=== PATIENT | female | born 1950 | race Caucasian/White ===

== ENCOUNTER → 2016-11-22 | Outpatient (CLI) | payer OTHER | LOC: CIMAGING 13:27 | PROVIDERS: ATTEND Internal Medicine | DX: N64.89 Other specified disorders of breast (principal) | CPT/HCPCS: G0204 ==

== ENCOUNTER → 2017-04-07 | Outpatient (CLI) | payer OTHER, MEDICARE | LOC: BRMIMAGING 13:59 | PROVIDERS: ATTEND Internal Medicine | DX: Z13.820 Encounter for screening for osteoporosis (principal); M81.0 Age-related osteoporosis without current pathological fracture; Z78.0 Asymptomatic menopausal state ==

== ENCOUNTER → 2017-04-10 | Outpatient (CLI) | payer OTHER, MEDICARE ==
[~2017-04-10] MED LIST: GADOBUTROL 10 ML VIAL IVP ONE
== END ==
LOC: FIMAGING 07:06
PROVIDERS: ATTEND Internal Medicine
DX: Z12.39 Encounter for other screening for malignant neoplasm of breast (principal); N63.22 Unspecified lump in the left breast, upper inner quadrant
CPT/HCPCS: 0159T; A9585; C8908

== ENCOUNTER 2017-04-17 08:01 | Outpatient (CLI) | payer OTHER, MEDICARE ==
[2017-04-17] MEDS ORDERED: GADOBUTROL 10 ML VIAL IVP ONE (08:50)
[2017-04-17] MEDS ORDERED: NA BICARBONATE 50 MEQ/50 ML VIAL ONE ×2 (08:50→08:54)
[2017-04-17] MEDS ORDERED: LIDOCAINE 1% 5 ML SDV ONE ×2 (08:53→08:54)
[2017-04-17] MEDS ORDERED: BUPIVACAINE 0.5% 30 ML SDV ONE (08:54)
[2017-04-17] MEDS ORDERED: NALOXONE HCL 0.4 MG/ML INJ ONE (09:24)
[2017-04-17] MEDS ORDERED: FLUMAZENIL 0.5 MG/5 ML MDV IVP ONE (09:24)
[2017-04-17] MEDS ORDERED: ONDANSETRON 4 MG/2 ML VIAL ONE (09:24)
[2017-04-17] MEDS ORDERED: fentaNYL 100 MCG/2 ML INJ ONE (09:25)
[2017-04-17] MEDS ORDERED: MIDAZOLAM 2 MG/2 ML VIAL ONE (09:25)
[2017-04-23 18:07] LABS: FIXED IN 10%FORM 6-72HR Yes; FIXED IN 10%FORM W/IN 1 HR Yes
== END 2017-04-17 12:18 | disposition home or self-care (01) ==
LOC: FIMAGING 08:01
PROVIDERS: ATTEND Internal Medicine
PROC: BH3 Imaging, Skin, Subcutaneous Tissue and Breast, Magnetic Resonance Imaging (MRI) (ICD-10-PCS; principal; 2017-04-17)
DX: C50.812 Malignant neoplasm of overlapping sites of left female breast (principal)
CPT/HCPCS: 19085; 88305; 88341; 88342; 88360; 88361; 99152; 99153; A9585; G0206; J2250; J3010; J2310; J2405

== ENCOUNTER → 2017-05-07 | Day surgery (SDC) | payer OTHER, MEDICARE ==
[~2017-05-07] MED LIST changes: +BUPIVACAINE 0.5% 10 ML SDV ONE; -GADOBUTROL 10 ML VIAL IVP ONE; +LIDOCAINE 1% 300 MG/30 ML SDV ONE
== END | disposition home or self-care (01) ==
LOC: FIMAGING 07:21
PROVIDERS: ATTEND Radiology Diagnostic Radiology
DX: C50.912 Malignant neoplasm of unspecified site of left female breast (principal)
CPT/HCPCS: 19281; 76098; 78195; A9520

== ENCOUNTER → 2017-07-09 | Outpatient (CLI) | payer OTHER, MEDICARE | LOC: FIMAGING 11:13 | PROVIDERS: ATTEND Physician Assistant | DX: T84.84XA Pain due to internal orthopedic prosthetic devices, implants and grafts, initial encounter (principal) | CPT/HCPCS: 78320; A9503 ==

== ENCOUNTER → 2017-12-09 | Outpatient (CLI) | payer OTHER, MEDICARE | LOC: FIMAGING 14:45 | PROVIDERS: ATTEND Surgery | DX: R10.31 Right lower quadrant pain (principal) ==

== ENCOUNTER → 2018-01-01 | Outpatient (CLI) | payer OTHER, MEDICARE | LOC: FIMAGING 12:21 | PROVIDERS: ATTEND Internal Medicine | DX: Z12.31 Encounter for screening mammogram for malignant neoplasm of breast (principal); Z85.3 Personal history of malignant neoplasm of breast ==

== ENCOUNTER 2018-07-16 21:07 | Emergency (ER) | payer OTHER, MEDICARE ==
--- NOTE | 2018-07-16 21:31 | EDPHY ---
H & P Stated Complaint: headache Source: Patient Exam Limitations: No limitations - Personal History Current Tetanus Diphtheria and Acellular Pertussis (TDAP): Yes - Medical/Surgical History Hx Asthma: No Hx Chronic Respiratory Disease: No Hx Diabetes: No Hx Cardiac Disease: No Hx Renal Disease: No Hx Cirrhosis: No Hx Alcoholism: No Hx HIV/AIDS: No Hx Splenectomy or Spleen Trauma: No Other PMH: ANXIETY - Social History Smoking Status: Never smoked Time Seen by Provider: 07/16/18 21:30 HPI/ROS: HPI: This is a 68-year-old female who presents with Chief Complaint: Headache, anxiety Location: Left eye, jehovah's witness Quality: Headache Duration: Since this morning Signs and Symptoms: no fever, + nausea, no vomiting, + photophobia, no noise sensitivity, no neck stiffness, no ear pain, no tinnitus, no nasal congestion, no sinus pressure, no weakness, no radiation, no aura, no neck stiffness, no rash Timing: Gradually worsening Severity: 12/07 Context: Patient reports that she around mid morning while she was doing housework she started to developed pressure behind her left eye that was mild and dull and aching. She then ran some errands and tonight around 7:00 p.m. The pain started to worsen and radiate into her left jehovah's witness and into the side of her left head. Patient reports that she is nauseous but has had no vomiting , fever, vision changes, aura, sore throat, neck stiffness. Patient reports that she is sensitive to light. She reports that she does not get headaches very often and that this headache type is new for her. She does not have a history of migraine headaches. She is postmenopausal. She thought that she needed to eat food which was causing her nausea so she had a large meal without relief of her symptoms. Modifying Factors: None Comment: ROS: A comprehensive 10 system review of systems is otherwise negative aside from elements mentioned in the history of present illness. MEDICAL/SURGICAL/SOCIAL HISTORY: Medical history: Anxiety, depression. Surgical history: Denies Social history: Nonsmoker. . Family history noncontributory. CONSTITUTIONAL: Nontoxic-appearing, polite and cooperative, elderly white female who appears younger than stated age, awake and alert, no obvious distress HEENT: Atraumatic and normocephalic, PERRL, EOMI. Cranial nerves 2-12 grossly intact. Nares patent; no rhinorrhea; no nasal mucosal edema. Tympanic membranes clear. Oropharynx clear, no exudate and moist pink mucosa. Airway patent. No lymphadenopathy. Neck: Supple, full range of motion, no pain with ranges of motion, No meningismus. Cardiovascular: Normal S1/S2, regular rate, regular rhythm, without murmur rub or gallop. PULMONARY/CHEST: Symmetrical and nontender. Clear to auscultation bilaterally. Good air movement. No accessory muscle usage. ABDOMEN: Soft, nondistended, nontender, no rebound, no guarding, no peritoneal signs, no masses or organomegaly. No CVAT. EXTREMITIES: 2/2 pulses, strength 5/5, no deformities, no clubbing, no cyanosis or edema. NEUROLOGICAL: no focal neuro deficits. GCS 15. Speech clear. Normal finger-to- nose. Normal [id number]. Normal cerebellar testing. SKIN: Warm and dry, no erythema. no rash. Good capillary refill. (Emily Rhoades) Constitutional: Initial Vital Signs Temperature (C) 36.9 C 07/16/18 21:17 Heart Rate 59 L 07/16/18 21:17 Respiratory Rate 20 07/16/18 21:17 Blood Pressure 134/63 H 07/16/18 21:17 O2 Sat (%) 95 07/16/18 21:17 O2 Delivery Mode Room Air Allergies/Adverse Reactions: amoxicillin Allergy (Verified 07/16/18 21:17) Rash Cephalosporins Allergy (Verified 07/16/18 21:17) Hives Home Medications: Medication Instructions Recorded Sertraline HCl [Zoloft 100mg (*)] 100 mg PO DAILY 08/26/15 Acet/Caffeine/Buta Fioricet 1 each PO Q6 PRN #10 tab 07/16/18 [Fioricet (*)] Ondansetron Odt [Zofran Odt 4 mg 4 mg PO Q4 PRN #12 tab 07/16/18 (*)] Medical Decision Making - Diagnostics Imaging Results: Imaging Impressions Head CT 07/16/18 21:41 Impression: 1. There is no acute intracranial abnormality or left periorbital abnormality identified on this unenhanced CT evaluation. 2. Small amount of dependent fluid seen in the posterior portion of the right mastoids. Clinical correlation is suggested. If there is further clinical concern regarding the patient's symptoms, MR imaging of the brain (with and without contrast) is suggested, if not otherwise contraindicated. Findings were discussed with Emily Rhoades PA-C at 22:05, on 07/16/2018. ED Course/Re-evaluation: Vital signs reviewed and stable upon arrival. No systemic signs. This appears to be a migrainous type headache. Since age greater than 65 years old and new type of headache, will order head CT imaging IV access, medications ordered Patient given 1 L normal saline, IV Decadron, IV promethazine 2253: Patient ambulating to the restroom. 2300: Reassessed patient who reports relief of headache. Discuss head CT imaging results. Patient reports near complete relief of symptoms. Patient given a prescription for Zofran and Fioricet. This patient was seen under the supervision of my secondary supervising physician. I evaluated care for this patient with attending. Discussed this patient with Dr. Carson. (Emily Rhoades) Differential Diagnosis: Headache including but not limited to subarachnoid hemorrhage, migraine headache , tension headache and infectious causes such as meningitis, pharyngitis and sinusitis. (Emily Rhoades) Other Provider: PHYSICIAN DOCUMENTATION: The patient was evaluated and managed by the Physician Sales [employer] and myself. I have reviewed the chart and agree with the findings and plan of care as documented. In addition, I examined the patient myself at 2200. History confirmed as nontraumatic left-sided headache which is waxing and waning, worse with light and noise, associated with nausea. Not thunderclap in onset or worst of life. Waxed and waned since onset. Physical findings as follows: Normal range of motion of the neck, fluent speech, not confused. More likely to be migraine or other benign headache, less likely to be subarachnoid or meningitis or intracranial mass or bleed or venous thrombosis. She does not have a history of VTE or cerebral aneurysm, she did have a history of migraines in the past when she was younger. Appropriate to treat for migraine headache, discharge if symptoms improve and CT is negative. I am the secondary supervising physician. (Christiano Carson) - Data Points Medications Given: Discontinued Medications Dexamethasone (Decadron Injection) 10 mg IVP EDNOW ONE Stop: 07/16/18 21:41 Last Admin: 07/16/18 21:57 Dose: 10 mg Sodium Chloride (Ns) 1,000 mls @ 0 mls/hr IV ONCE ONE; Wide Open PRN Reason: Protocol Stop: 07/16/18 21:41 Last Admin: 07/16/18 21:57 Dose: 1,000 mls Promethazine HCl (Phenergan) 12.5 mg IVP EDNOW ONE Stop: 07/16/18 21:42 Last Admin: 07/16/18 21:55 Dose: 12.5 mg Departure - Departure Disposition: Home, Routine, Self-Care Clinical Impression: Migraine headache without aura Qualifiers: Status migrainosus presence: without status migrainosus Intractability: not intractable Qualified Code(s): G43.009 - Migraine without aura, not intractable , without status migrainosus Condition: Good Instructions: Migraine Headache (ED) Additional Instructions: Rest as much as possible until you are feeling better. Take Tylenol 650 mg every 4 hours and/or Ibuprofen 600 mg every 8 hours with food as needed for pain. Consume a minimum of 8-10 glasses of water or electrolyte fluid replacement drinks that include Gatorade, Powerade, Pedialyte. Take Zofran every 4 hr as needed for nausea, vomiting. Take Fioricet every 6 hr as needed for headache not relieved by Tylenol or ibuprofen. Return to the ER immediately if you have progressive headaches, neurologic deficits, gait abnormality, visual disturbance, slurred speech, or any other symptom that concerns you. Referrals: Lesley Luna MD [Primary Care Provider] - 2-3 days, if not improved Prescriptions: Acet/Caffeine/Buta Fioricet [Fioricet (*)] 1 each PO Q6 PRN #10 tab PRN Reason: Headache Ondansetron Odt [Zofran Odt 4 mg (*)] 4 mg PO Q4 PRN #12 tab PRN Reason: Nausea/Vomiting, Use 1st
[2018-07-16] MEDS ORDERED: DEXAMETHASONE 10 MG/ML VIAL IVP ONE (21:40)
[2018-07-16] MEDS ORDERED: NS 1,000 ML IV ONE (21:40)
[2018-07-16] MEDS ORDERED: PROMETHAZINE HCL 25 MG/ML INJ IVP ONE (21:41)
[2018-07-16 23:11] VITALS: BP 106/61
== END 2018-07-16 23:11 | disposition home or self-care (01) ==
DX: G43.009 Migraine without aura, not intractable, without status migrainosus (principal); F41.9 Anxiety disorder, unspecified
CPT/HCPCS: 70450; 99284; J1100; J2550

== ENCOUNTER → 2018-07-28 | Outpatient (CLI) | payer OTHER, MEDICARE ==
[~2018-07-28] MED LIST changes: -BUPIVACAINE 0.5% 10 ML SDV ONE; +GADOBUTROL 10 ML VIAL IVP ONE; -LIDOCAINE 1% 300 MG/30 ML SDV ONE
== END ==
LOC: FIMAGING 06:56
PROVIDERS: ATTEND Internal Medicine
DX: G43.909 Migraine, unspecified, not intractable, without status migrainosus (principal)
CPT/HCPCS: 70553; A9585; 82565-PO

== ENCOUNTER → 2018-10-26 | Outpatient (CLI) | payer OTHER, MEDICARE | LOC: CIMAGING 17:37 | PROVIDERS: ATTEND Internal Medicine | DX: N95.0 Postmenopausal bleeding (principal) | CPT/HCPCS: 76856-PO ==